=== PATIENT | male | born 1955 | race Two or more races ===

== ENCOUNTER 2020-02-12 14:58 | Outpatient (CLI) | payer OTHER | END 2020-02-12 18:00 | disposition home or self-care (01) | LOC: PPH VACUNA 14:58 | DX: Z23 Encounter for immunization (principal) ==

== ENCOUNTER → 2020-05-27 | Outpatient (CLI) | payer OTHER | END | disposition home or self-care (01) | LOC: NUCLEAR 09:54 | PROVIDERS: ATTEND Student in an Organized Health Care Education/Training Program | DX: E78.5 Hyperlipidemia, unspecified (principal); I65.23 Occlusion and stenosis of bilateral carotid arteries ==

== ENCOUNTER → 2020-11-25 | Outpatient (CLI) | payer OTHER | END | disposition home or self-care (01) | LOC: PPH VACUNA 08:00 | PROVIDERS: ATTEND Emergency Medicine Pediatric Emergency Medicine | DX: Z23 Encounter for immunization (principal) ==

== ENCOUNTER 2021-06-05 07:16 | Outpatient (CLI) | payer OTHER | END 2021-06-05 07:25 | disposition home or self-care (01) | LOC: NUCLEAR 07:16 | PROVIDERS: ATTEND Internal Medicine Cardiovascular Disease | DX: I20.9 Angina pectoris, unspecified (principal) ==

== ENCOUNTER 2022-02-09 09:04 | Outpatient (CLI) | payer OTHER | END 2022-02-09 09:14 | disposition home or self-care (01) | LOC: PPH VACUNA 09:04 | PROVIDERS: ATTEND Emergency Medicine Pediatric Emergency Medicine | DX: Z23 Encounter for immunization (principal) ==

== ENCOUNTER → 2022-12-24 | Outpatient (CLI) | payer OTHER | END | disposition home or self-care (01) | LOC: TOM 08:24 | PROVIDERS: ATTEND Specialist | DX: F17.211 Nicotine dependence, cigarettes, in remission (principal) ==

== ENCOUNTER 2024-07-11 07:23 | Outpatient (CLI) | payer OTHER | END 2024-07-11 07:30 | disposition home or self-care (01) | LOC: SONOGRAMA 07:23 | PROVIDERS: ATTEND Specialist | DX: R10.10 Upper abdominal pain, unspecified (principal) ==